=== PATIENT | female | born 1985 | race Hispanic/Latino ===

== ENCOUNTER 2017-10-26 18:48 | Emergency (ER) | payer OTHER ==
[2017-10-26 18:48] VITALS: BMI 27.1
[2017-10-26 19:15] VITALS: RESP 18
--- NOTE | 2017-10-26 20:55 | ED PDOC ---
Lower Extremity Pain/Injury Time Seen by Provider: 10/26/17 20:28 Chief Complaint (Nursing): Lower Extremity Problem/Injury Chief Complaint (Provider): Left Foot Pain History Per: Patient History/Exam Limitations: no limitations Onset/Duration Of Symptoms: Hrs (earlier today) Current Symptoms Are (Timing): Still Present Additional Complaint(s): 32 year old female presents to the ED for evaluation of left foot pain. A couple of hours prior to arrival, patient struck the side of her left foot against a piece of furniture, causing immediate pain. She was evaluated at [facility], where they gave her a script for Tramadol she has not picked up yet, and advised her to come to the ED for XRs. PMD: [facility] Past Medical History Reviewed: Historical Data, Nursing Documentation, Vital Signs Vital Signs: Last Vital Signs Temp 98.6 F 10/26/17 19:12 Pulse 59 L 10/26/17 19:12 Resp 18 10/26/17 19:12 BP 105/54 L 10/26/17 19:12 Pulse Ox 98 10/26/17 19:12 - Medical History PMH: No Chronic Diseases - Surgical History Surgical History: No Surg Hx - Family History Family History: States: Unknown Family Hx - Home Medications Home Medications: Ambulatory Orders Medication Instructions Recorded Naproxen [Naprosyn] 500 mg PO Q12 PRN #20 tablet 01/23/17 Ibuprofen [Motrin] 600 mg PO Q6 #20 tab 10/26/17 - Allergies Allergies/Adverse Reactions: Allergies Allergy/AdvReac Type Severity Reaction Status Date / Time Penicillins Allergy SHORTNESS Verified 06/01/15 00:03 OF BREATH Review of Systems ROS Statement: Except As Marked, All Systems Reviewed And Found Negative Musculoskeletal: Positive for: Foot Pain (left foot) Physical Exam - Reviewed Nursing Documentation Reviewed: Yes Vital Signs Reviewed: Yes - Physical Exam Appears: Positive for: No Acute Distress Head Exam: Positive for: ATRAUMATIC, NORMOCEPHALIC Skin: Positive for: Normal Color, Warm, Dry Eye Exam: Positive for: Normal appearance Cardiovascular/Chest: Positive for: Regular Rate, Rhythm. Negative for: Murmur Respiratory: Positive for: Normal Breath Sounds. Negative for: Accessory Muscle Use, Respiratory Distress Pulses-Dorsalis Pedis (L): 2+ Pulses-Dorsalis Pedis (R): 2+ Extremity: Positive for: Tenderness (over base of 5th metatarsal of left foot with no edema, ecchymosis, or erythema) Neurologic/Psych: Positive for: Alert, Oriented (x3). Negative for: Motor/ Sensory Deficits - ECG O2 Sat by Pulse Oximetry: 98 (RA) Pulse Ox Interpretation: Normal Medical Decision Making Medical Decision Making: Time: 2051 Initial Impression: foot contusion Initial Plan: --Tramadol 50 mg PO --XR left foot XR: NAD as read by BRICE Pt placed in surgical shoe and instructed on crutch walking by hvac technician RICE therapy advised. Pt scheduled with breaker layer at [facility] on 11/03/17 Scribe Attestation: Documented by Jesenia Faulkner, acting as a scribe for Yoli Lucas PA-C. Provider Scribe Attestation: All medical record entries made by the Scribe were at my direction and personally dictated by me. I have reviewed the chart and agree that the record accurately reflects my personal performance of the history, physical exam, medical decision making, and the department course for this patient. I have also personally directed, reviewed, and agree with the discharge instructions and disposition. Disposition - Clinical Impression Clinical Impression: Contusion, foot - Patient ED Disposition Is Patient to be Admitted: No - Disposition Disposition: Routine/Home Disposition Time: 22:21 Condition: STABLE Additional Instructions: Follow up with Podiatry clinic on 11/03 as scheduled Prescriptions: Ibuprofen [Motrin] 600 mg PO Q6 #20 tab Instructions: Contusion (DC) Forms: [employer] ([place]), [facility] ED School/Work Excuse
[2017-10-26 22:46] VITALS: BP 122/70; PULSE 78; TEMP 98; O2SAT 99
--- NOTE | 2017-10-27 09:13 | RAD ---
Date of service: 10/26/2017 PROCEDURE: Left Foot Radiographs. HISTORY: pain s/p striking furniture COMPARISON: None. FINDINGS: BONES: No acute fracture. JOINTS: Normal. SOFT TISSUES: Normal. OTHER FINDINGS: None. IMPRESSION: No demonstrated fracture or dislocation.
== END 2017-10-26 22:44 | disposition home or self-care (01) ==
LOC: H.ER 18:48
DX: S90.32XA Contusion of left foot, initial encounter (principal); W22.8XXA Striking against or struck by other objects, initial encounter; Y92.89 Other specified places as the place of occurrence of the external cause; Z88.0 Allergy status to penicillin